=== PATIENT | female | born 1955 | race Caucasian/White ===

== ENCOUNTER 2019-12-10 07:21 | Outpatient (CLI) | payer BC, SELFPAY ==
[2019-12-10 08:03] LABS: Creatinine Urine 106.34 mg/dL (40-278)
[2019-12-10 08:06] LABS: MALB Creatinine Ratio 21.6 mg/g (0-30)
[2019-12-10 09:44] LABS: Alanine Aminotransferase 100 U/L (14-59); Albumin Level 3.8 g/dL (3.4-5.0); Alkaline Phosphatase 87 U/L (46-116); Anion Gap 13.5 mmol/L (7-16); Aspartate Amino Transferase 73 U/L (15-37); Bilirubin,Total 0.6 mg/dL (0.00-1.00); Blood Urea Nitrogen 20 mg/dL (7-18); Calcium 9.2 mg/dL (8.5-10.1); Carbon Dioxide 30 mmol/L (21-32); Chloride 101 mmol/L (98-108); Cholesterol 179 mg/dL (0-200); Estimated Glomerular Filt Rate 60; Glucose 161 mg/dL (70-99); HDL Direct 36 mg/dL (40-60); LDL Cholesterol Calculated 116 mg/dL (<130); Osmolality Calculated 297 mOsm/kg (285-295); Potassium 3.5 mmol/L (3.5-5.1); Sodium 141 mmol/L (136-145); Total Protein 7.3 g/dL (6.4-8.2); Triglycerides 137 mg/dL (0-150)
== END 2019-12-10 07:22 | disposition home or self-care (01) ==
DX: E11.65 Type 2 diabetes mellitus with hyperglycemia (principal)
CPT/HCPCS: 36415; 80053; 80061; 82043

== ENCOUNTER 2020-11-22 09:02 | Outpatient (CLI) | payer OTHER, SELFPAY ==
[2020-11-22 09:22] LABS: Basophils Absolute Auto 0.02 K/mm3 (0.00-0.10); Basophils Percent Auto 0.3 % (0.0-1.0); Eosinophils Absolute Auto 0.06 K/mm3 (0.02-0.50); Hematocrit 40.5 % (35.0-49.0); Hemoglobin 12.6 g/dL (12.0-15.0); Immature Granulocyte Absolute 0.01 K/mm3 (0.00-0.00); Immature Granulocyte Percent A 0.2 % (0.0-0.0); Lymphocytes Percent Auto 19.7 % (18.0-42.0); Mean Corpuscular HGB Conc 31.1 g/dL (32.0-36.0); Mean Corpuscular Hemoglobin 24.6 pg (27.0-31.0); Mean Corpuscular Volume 78.9 fL (78.0-102.0); Mean Platelet Volume 11.7 fl (9.2-11.8); Monocytes Absolute Auto 0.33 K/mm3 (0.10-0.90); Monocytes Percent Auto 5.4 % (2.0-11.0); Neutrophils Absolute Auto 4.5 K/mm3 (1.7-7.2); Neutrophils Percent Auto 73.4 % (50.0-70.0); Platelet Count Result 237 K/mm3 (150-420); Red Blood Count 5.13 M/mm3 (4.20-5.40); Red Cell Distribution Width 15.6 % (11.6-14.4); White Blood Count 6.1 K/mm3 (4.8-10.8)
[2020-11-22 09:59] LABS: Hemoglobin A1C 7.7 % (<5.7)
[2020-11-22 10:34] LABS: Erythrocyte Sedimentation Rate 13 mm/hr (0-20)
[2020-11-22 11:12] LABS: Alanine Aminotransferase 82 U/L (14-59); Albumin Level 3.6 g/dL (3.4-5.0); Alkaline Phosphatase 107 U/L (46-116); Anion Gap 8 mmol/L (8-16); Aspartate Amino Transferase 77 U/L (15-37); Bilirubin,Total 0.5 mg/dL (0.00-1.00); Blood Urea Nitrogen 10 mg/dL (7-18); Calcium 9.1 mg/dL (8.5-10.1); Carbon Dioxide 29 mmol/L (21-32); Chloride 101 mmol/L (98-108); Cholesterol 168 mg/dL (0-200); Estimated Glomerular Filt Rate 57; Folic Acid 15.1 ng/mL (8.6->20); Glucose 151 mg/dL (70-99); HDL Direct 31 mg/dL (40-60); LDL Cholesterol Calculated 93 mg/dL (<130); LDL Cholesterol Direct 105 mg/dL (0-130); Osmolality Calculated 288 mOsm/kg (285-295); Potassium 3.1 mmol/L (3.5-5.1); Sodium 138 mmol/L (136-145); Thyroid Stimulating Hormone 1.25 uIU/mL (0.36-3.74); Total Protein 7.1 g/dL (6.4-8.2); Triglycerides 220 mg/dL (0-150); Vitamin B12 485 pg/mL (193-986)
[2020-11-23 23:28] LABS: Zinc 74 mcg/dL (60-130)
[2020-11-24 22:53] LABS: Albumin 3.7 g/dL (3.8-4.8); Alpha 1 Globulin 0.3 g/dL (0.2-0.3); Alpha 2 Globulin 0.8 g/dL (0.5-0.9); Beta 1 Globulin 0.6 g/dL (0.4-0.6); Gamma Globulin 0.8 g/dL (0.8-1.7); Protein, Total 6.6 g/dL (6.1-8.1)
[2020-11-26 16:31] LABS: Alpha-Tocopherol 13.9 mg/L (5.7-19.9); Beta-Gamma Tocopherol 2.5 mg/L (<=4.3)
== END 2020-11-22 09:03 | disposition home or self-care (01) ==
LOC: CHSLAB 09:07
PROVIDERS: PCP Internal Medicine
DX: Z00.01 Encounter for general adult medical examination with abnormal findings (principal); E11.40 Type 2 diabetes mellitus with diabetic neuropathy, unspecified; E04.2 Nontoxic multinodular goiter; E78.5 Hyperlipidemia, unspecified; K21.9 Gastro-esophageal reflux disease without esophagitis; Z79.4 Long term (current) use of insulin
CPT/HCPCS: 36415; 80053; 80061; 82607; 82746; 83036; 83721; 84155; 84165; 84443; 84446; 84630; 85025; 85652; 86038; 86225

== ENCOUNTER 2022-12-13 09:21 | Outpatient (CLI) | payer MEDICARE, SELFPAY ==
--- NOTE | ~2022-12-13 | DEXA_ITS ---
Bone Density Report Name: YOLY RIDLEY Age: 67 Sex: Female Ethnicity: White Date of : 1955 Indication: postmenopausal; screening for osteoporosis; height loss; hysterectomy; Referring Provider: KIKE STEWART Study: Bone densitometry was performed. Exam Date: December 13, 2022 Accession number: [id number] Bone Density: Region BMD T-score Z-score Classification AP Spine(L1, L2, L3) 1.243 2.0 3.8 Normal Femoral Neck (Left) 0.782 -0.6 0.9 Normal Total Hip (Left) 0.977 0.3 1.5 Normal Femoral Neck (Right) 0.763 -0.8 0.7 Normal Total Hip (Right) 0.897 -0.4 0.9 Normal Femoral Neck Mean 0.773 -0.7 0.8 Normal Total Hip Mean 0.937 0.0 1.2 Normal World Health Organization criteria for BMD impression classify patients as: Normal (T-score at or above -1.0), Osteopenia (T-score between -1.0 and -2.5), or Osteoporosis (T-score at or below -2.5). 10-year Fracture Risk: FRAX not reported because: All T-scores for Spine Total, Hip Total, Femoral Neck at or above -1.0 Clinical Information Provided by Patient: Has the following medical conditions: Hysterectomy Patient maximum height was 63 Menopause Age: 57 No regular weight bearing exercise Does not regularly consume dairy products Drinks caffeinated beverages Onset of menses at age 16 Number of children 3 Impression: The patient has normal bone mass. Discussion: BONE DENSITY IS ABOVE THE MINIMUM DESIRABLE LEVEL AT ALL SKELETAL SITES TESTED. This patient?s bone mineral density is above the minimum desirable level (T-score -1.0 or better) at all sites measured. The patient should follow a healthful lifestyle (good nutrition with adequate calcium and vitamin D, and appropriate weight-bearing exercise). Follow-Up: Consider repeating this study in 5 years or sooner if there is some new clinical indication. Reported by: Dr. Jeremías Harris on 12/13/2022 10:06:00 AM. Reviewed, dictated and finalized at location [id number]
--- NOTE | ~2022-12-13 | MM_ITS ---
EXAMINATION: MM screening ofe BI w fred HISTORY: Screening mammogram TECHNIQUE: Craniocaudal and mediolateral oblique 3-D tomosynthesis images were obtained and synthetic 2-D images were generated. CAD analysis was submitted and interpreted. COMPARISON: 03/14/2018 bilateral screening mammogram BREAST PARENCHYMAL COMPOSITION: There are scattered areas of fibroglandular density. FINDINGS: There is no evidence of suspicious mass, calcification, or architectural distortion to sugg est malignancy in either breast. There has been no suspicious interval change. IMPRESSION: 1. No mammographic evidence of malignancy. 2. Recommend routine screening mammography in one year. BI-RADS Category 1: Negative Reviewed, dictated and finalized at location [facility]
== END 2022-12-13 09:22 | disposition home or self-care (01) ==
LOC: CHSIMG 09:23
PROVIDERS: PCP Physician Assistant Medical; Visit Provider Physician Assistant Medical
DX: Z12.31 Encounter for screening mammogram for malignant neoplasm of breast (principal); Z78.0 Asymptomatic menopausal state
CPT/HCPCS: 77063; 77067; 77080

== ENCOUNTER 2022-12-18 10:22 | Outpatient (CLI) | payer MEDICARE, SELFPAY ==
[2022-12-18 10:46] LABS: Creatinine Urine 105.42 mg/dL (40-278); MALB Creatinine Ratio 12.3 mg/g (0-30); Microalbumin Urine Random < 13.0 mg/L
[2022-12-18 11:02] LABS: Alanine Aminotransferase 67 U/L (14-59); Albumin Level 3.5 g/dL (3.4-5.0); Alkaline Phosphatase 100 U/L (46-116); Anion Gap 6 mmol/L (8-16); Aspartate Amino Transferase 58 U/L (15-37); Bilirubin,Total 0.7 mg/dL (0.00-1.00); Blood Urea Nitrogen 17 mg/dL (7-18); Calcium 8.7 mg/dL (8.5-10.1); Carbon Dioxide 34 mmol/L (21-32); Chloride 98 mmol/L (98-108); Cholesterol 178 mg/dL (0-200); Estimated Glomerular Filt Rate 60; Glucose 164 mg/dL (70-99); HDL Direct 32 mg/dL (40-60); LDL Cholesterol Calculated 114 mg/dL (<130); Osmolality Calculated 291 mOsm/kg (285-295); Potassium 3.5 mmol/L (3.5-5.1); Sodium 138 mmol/L (136-145); Total Protein 6.7 g/dL (6.4-8.2); Triglycerides 162 mg/dL (0-150)
== END 2022-12-18 10:23 | disposition home or self-care (01) ==
LOC: CHSLAB 10:25
PROVIDERS: PCP Physician Assistant Medical; Visit Provider Internal Medicine Endocrinology, Diabetes & Metabolism
DX: E11.65 Type 2 diabetes mellitus with hyperglycemia (principal); E78.5 Hyperlipidemia, unspecified; E11.59 Type 2 diabetes mellitus with other circulatory complications; E11.69 Type 2 diabetes mellitus with other specified complication
CPT/HCPCS: 36415; 80053; 80061; 82043

== ENCOUNTER 2022-12-27 01:40 | Day surgery (SDC) | payer MEDICARE, SELFPAY ==
[2022-12-12 12:26] VITALS: BMI 37.0
[2022-12-27 06:23] VITALS: BP 161/71; PULSE 66; RESP 16; TEMP 36.1; O2SAT 99
[2022-12-27] MEDS: LACTATED RINGERS 1,000 ML 150 ML IV CONT (06:31)
[2022-12-27 06:36] LABS: Glucose Point of Care 152 mg/dl (65-105)
--- NOTE | 2022-12-27 07:26 | WPDANESEPPF ---
Anes - Initial Pre Proc Eval Procedure: Operation Date: 12/27/22 07:30 Proposed Procedures p Esophagogastroduodenoscopy & Screening Colonoscopy - Xu Nguyen MD Date/Time: 12/27/22 07:26 Surgeon: Xu Nguyen MD Pre Op Diagnosis: neoplasm screening, GERD, gastric polyps Patient Data Age: 67 Gender: F Height: 1.6 m Weight: 95.5 kg Last Vital Signs Temp 97 F L 12/27/22 06:23 Pulse 66 12/27/22 06:23 Resp 16 12/27/22 06:23 BP 161/71 H 12/27/22 06:23 Pulse Ox 99 12/27/22 06:23 O2 Del Method Room Air 12/27/22 06:23 Allergies Allergy/AdvReac Type Severity Reaction Status Date / Time Penicillins Allergy Unknown Rash Verified 12/27/22 06:21 Home Medications Medication Instructions Recorded Confirmed Type atorvastatin 40 mg tablet 40 mg PO DAILY 11/20/22 12/12/22 History empagliflozin 10 mg tablet 10 mg PO DAILY 11/20/22 12/12/22 History (Jardiance) escitalopram oxalate 10 mg tablet 10 mg PO DAILY #90 tabs 11/20/22 12/12/22 Rx (Lexapro) esomeprazole magnesium 40 mg 40 mg PO DAILY #90 caps 11/20/22 12/12/22 Rx capsule,delayed release fenofibrate nanocrystallized 145 145 mg PO DAILY 11/20/22 12/12/22 History mg tablet gabapentin 300 mg capsule 300 mg PO TID 11/20/22 12/12/22 History glimepiride 2 mg tablet 2 mg PO QAM 11/20/22 12/12/22 History hydrochlorothiazide 25 mg tablet 25 mg PO DAILY #90 tabs 11/20/22 12/12/22 Rx metformin 500 mg tablet 1,000 mg PO DAILY 11/20/22 12/12/22 History metoprolol succinate 25 mg 25 mg PO .COMPLEX #270 tabs 11/20/22 12/27/22 Rx tablet,extended release 24 hr montelukast 10 mg tablet 10 mg PO DAILY #90 tabs 11/20/22 12/12/22 Rx (Singulair) temazepam 30 mg capsule 30 mg PO QHS PRN sleep #30 caps 11/20/22 12/12/22 Rx Laboratory Tests 12/27/22 06:33 POC Capillary Glucose 152 mg/dl H mg/dl (65-105) Patient hx anesthesia problems: none Family hx anesthesia problems: none Results Review: All pre-operative results and documents have been reviewed as part of the pre-operative evaluation. [facility] Past Medical History Medical History (Updated 11/21/22 @ 22:24 by Melissa Qureshi PA-C) Depression Diabetes type 2, controlled GERD (gastroesophageal reflux disease) HTN (hypertension) Insomnia Surgical History Surgical History H/O breast surgery History of bladder surgery History of cholecystectomy History of knee replacement History of knee surgery S/P complete hysterectomy Family History Family History Other Cerebrovascular accident Diabetes mellitus Family history of cardiovascular disease Social History Social History Smoking status: Never smoker Alcohol intake: never Substance use: never Substance use type: does not use Lack of Transportation: No Lack of Food: Never True Current Housing: I Have Housing Concerned About Future Housing: No Difficulty Paying Gas/Electric Bills: No Difficulty Paying for Meds: No Currently Unemployed: No Education: High School Diploma/GED Difficulty w/ Childcare or Family Care: No Living arrangements: with family Occupation/Education: retired Gender identity (if verbalized by the patient): Female Sexual Orientation (if Verbalized by the Patient): Straight or Heterosexual Spiritual care concerns: No Anes - Eval Final PreProcedure Day of Procedure 12/27/22 07:26 Patient weight: obese Heart: regular rate and rhythm Lungs: clear to auscultation Airway: Mallampati scale class II Neurological: alert and oriented Last oral intake: >/= 8 hours ASA classification: III Emergent: no Anesthetic plan: proceed Anesthesia type and monitoring: general GIVS and standard monitoring Results Review: All pre-operative results and documents have been review
--- NOTE | 2022-12-27 07:28 | PM.HPGS ---
History of Present Illness History of Present Illness Consent: Risks, benefits, and alternatives have been discussed and questions answered. Patient agrees to proceed with procedure. Chief complaint: neoplasm screening, GERD, gastric polyps Narrative: Sharee Hood is a 67 year old female with previous history of gerd on ppi and gastric polyp about 9 years ago, last colonoscopy same time Review of Systems Constitutional: Constitutional: Denies headache(s) and Denies weakness Eyes: Eyes: Denies blurry vision ENT: Reports Normal hearing present, Denies headache(s) and Denies neck pain Cardiovascular: Cardiovascular: Denies chest pain and Denies dyspnea Respiratory: Respiratory: Denies dyspnea Gastrointestinal: Gastrointestinal: Reports no additional gastrointestinal complaints Genitourinary: Genitourinary: Denies dysuria Musculoskeletal: Musculoskeletal: Denies neck pain Integumentary/Breasts: Skin/Breast: Denies dry skin Neurologic: Reports Normal hearing present, Denies headache(s) and Denies weakness Psychiatric: Psychiatric: Denies anxiety Endocrine: Endocrine: Denies change in body appearance Hematologic/Lymphatic: Hematologic/Lymphatic: Denies easy bleeding Allergic/Immunologic: Allergic/Immunologic: Denies urticaria PMFSH Past Medical History Medical History (Updated 12/27/22 @ 07:29 by Xu Nguyen MD) Colon cancer screening Depression Diabetes type 2, controlled Gastric polyp GERD (gastroesophageal reflux disease) HTN (hypertension) Insomnia Surgical History Surgical History H/O breast surgery History of bladder surgery History of cholecystectomy History of knee replacement History of knee surgery S/P complete hysterectomy Family History Family History Other Cerebrovascular accident Diabetes mellitus Family history of cardiovascular disease Social History Social History Smoking status: Never smoker Alcohol intake: never Substance use: never Substance use type: does not use Lack of Transportation: No Lack of Food: Never True Current Housing: I Have Housing Concerned About Future Housing: No Difficulty Paying Gas/Electric Bills: No Difficulty Paying for Meds: No Currently Unemployed: No Education: High School Diploma/GED Difficulty w/ Childcare or Family Care: No Living arrangements: with family Occupation/Education: retired Gender identity (if verbalized by the patient): Female Sexual Orientation (if Verbalized by the Patient): Straight or Heterosexual Spiritual care concerns: No Meds Home Medications and Allergies Home Medications Medication Instructions Recorded Confirmed Type atorvastatin 40 mg tablet 40 mg PO DAILY 11/20/22 12/12/22 History empagliflozin 10 mg tablet 10 mg PO DAILY 11/20/22 12/12/22 History (Jardiance) escitalopram oxalate 10 mg tablet 10 mg PO DAILY #90 tabs 11/20/22 12/12/22 Rx (Lexapro) esomeprazole magnesium 40 mg 40 mg PO DAILY #90 caps 11/20/22 12/12/22 Rx capsule,delayed release fenofibrate nanocrystallized 145 145 mg PO DAILY 11/20/22 12/12/22 History mg tablet gabapentin 300 mg capsule 300 mg PO TID 11/20/22 12/12/22 History glimepiride 2 mg tablet 2 mg PO QAM 11/20/22 12/12/22 History hydrochlorothiazide 25 mg tablet 25 mg PO DAILY #90 tabs 11/20/22 12/12/22 Rx metformin 500 mg tablet 1,000 mg PO DAILY 11/20/22 12/12/22 History metoprolol succinate 25 mg 25 mg PO .COMPLEX #270 tabs 11/20/22 12/27/22 Rx tablet,extended release 24 hr montelukast 10 mg tablet 10 mg PO DAILY #90 tabs 11/20/22 12/12/22 Rx (Singulair) temazepam 30 mg capsule 30 mg PO QHS PRN sleep #30 caps 11/20/22 12/12/22 Rx Allergies Allergy/AdvReac Type Severity Reaction Status Date / Time Penicillins Allergy Unknown Rash Verified 12/27
[2022-12-27] MEDS: BENZOCAINE (*SP) 60 ML SPRAY CAN (HURRICAINE) 1 SPRAY MUCOUS MEM (07:45)
--- NOTE | 2022-12-27 07:49 | SUR.OPER ---
EGD: started at [id number] Colon: began at 741
[2022-12-27 07:57] VITALS: BP 105/61; PULSE 75; RESP 21; O2SAT 97
[2022-12-27 08:07] VITALS: BP 127/73; PULSE 68; RESP 16; O2SAT 97
[2022-12-27 08:17] VITALS: BP 130/72; PULSE 72; RESP 16; O2SAT 98
== END 2022-12-27 08:23 | disposition home or self-care (01) ==
PROVIDERS: PCP Physician Assistant Medical; Visit Provider Internal Medicine Gastroenterology
PROC: 0DJ08ZZ Inspection of Upper Intestinal Tract, Via Natural or Artificial Opening Endoscopic (ICD-10-PCS; CPT 43235; principal; 2022-12-27 07:30)
DX: Z12.11 Encounter for screening for malignant neoplasm of colon (principal); D12.2 Benign neoplasm of ascending colon; D12.5 Benign neoplasm of sigmoid colon; K62.1 Rectal polyp; K57.30 Diverticulosis of large intestine without perforation or abscess without bleeding; K64.8 Other hemorrhoids; K21.9 Gastro-esophageal reflux disease without esophagitis; K31.7 Polyp of stomach and duodenum; E11.9 Type 2 diabetes mellitus without complications; I10 Essential (primary) hypertension; F32.A Depression, unspecified; Z79.84 Long term (current) use of oral hypoglycemic drugs; E66.9 Obesity, unspecified; Z68.37 Body mass index [BMI] 37.0-37.9, adult
CPT/HCPCS: 45380; 45385; 43239; 82948; 88305; J2704; J7120

== ENCOUNTER 2023-07-13 09:00 | Outpatient (CLI) | payer MEDICARE, SELFPAY ==
[2023-07-13 09:13] LABS: Appearance Urine Clear (Clear); Bilirubin Urine Negative (Negative); Blood Urine Negative (Negative); Color Urine Light Yellow (Yellow); Glucose Urine UA 3+ (Negative); Ketones Urine Negative (Negative); Leukocyte Esterase Ur Negative LEU/UL (Negative); Nitrate Urine Negative (Negative); Protein Urine Negative (Negative); Specific Grav Ur 1.015 (1.010-1.020); pH Urine 6.5 (5.0-8.0)
[2023-07-13 09:33] LABS: Add Urine Microscopic? YES; Bacteria Urine Rare /hpf; RBC Urine None seen /hpf (0-2); Squamous Epithelial Cell Urine Rare /hpf (Few)
== END 2023-07-13 09:01 | disposition home or self-care (01) ==
LOC: CHSLAB 09:02
PROVIDERS: PCP Family Medicine; Visit Provider Physician Assistant Medical
DX: N39.0 Urinary tract infection, site not specified (principal)
CPT/HCPCS: 81001; 87077; 87086; 87088; 87186

== ENCOUNTER 2023-09-05 13:16 | Outpatient (CLI) | payer MEDICARE, SELFPAY ==
--- NOTE | 2023-09-05 14:30 | NEURO_ITS ---
Impression: # Diabetic complains of numbness of right hand with nocturnal paresthesia. # Moderate right Carpal Tunnel Syndrome. # Right mild ulnar neuropathy,across the elbow.. # Needle/EMG exam mildly neurogenic in right abductor pollicis brevis muscle. Nerve Conduction Studies Anti Sensory Summary Table Stim Site NR Peak (ms) P-T Amp (?V) Site1 Site2 Delta-P (ms) Dist (cm) Santos (m/s) Right Median Anti Sensory (2-3nd Digit) Wrist 6.8 19.3 Wrist 2-3nd Digit 6.8 14.0 21 Wrist 6.6 12.7 Wrist 2-3nd Digit 6.8 14.0 21 Right Radial Anti Sensory (Base 1st Digit) Wrist 2.1 14.3 Wrist Base 1st Digit 2.1 0.0 Right Ulnar Anti Sensory (5th Digit) Wrist 2.6 31.7 Wrist 5th Digit 2.6 14.0 54 Motor Summary Table Stim Site NR Onset (ms) O-P Amp (mV) Site1 Site2 Delta-0 (ms) Dist (cm) Santos (m/s) Right Median Motor (Abd Poll Brev) Wrist 5.4 2.2 Elbow Wrist 5.0 26.0 52 Elbow 10.4 2.3 Right Ulnar Motor (Abd Dig Minimi) Wrist 2.3 8.5 A Elbow Wrist 5.8 28.0 48 A Elbow 8.1 7.0 B Elbow Wrist 3.5 18.0 51 B Elbow 5.8 4.5 F Wave Studies NR F-Lat (ms) L-R F-Lat (ms) Right Median (Mrkrs) (Abd Poll Brev) 29.87 Right Ulnar (Mrkrs) (Abd Dig Min) 28.15 EMG Side Muscle Nerve Root Ins Act Fibs Amp Dur Recrt Comment Right 1stDorInt Ulnar C8-T1 Nml Nml Nml Nml Nml Right Ext Indicis Radial (Post Int) C7-8 Nml Nml Nml Nml Nml Right Ext Digitorum Radial (Post Int) C7-8 Nml Nml Nml Nml Nml Right BrachioRad Radial C5-6 Nml Nml Nml Nml Nml Right PronatorTeres Median C6-7 Nml Nml Nml Nml Nml Right Abd Poll Brev Median C8-T1 Nml Nml Nml >12ms Reduced Right ABD Dig Min Ulnar C8-T1 Nml Nml Nml Nml Nml MTDD
== END 2023-09-05 13:17 | disposition home or self-care (01) ==
PROVIDERS: PCP Family Medicine; Visit Provider Physician Assistant Medical
DX: R20.2 Paresthesia of skin (principal); G56.01 Carpal tunnel syndrome, right upper limb; G56.21 Lesion of ulnar nerve, right upper limb
CPT/HCPCS: 95886; 95909

== ENCOUNTER 2024-03-12 09:04 | Outpatient (CLI) | payer MEDICARE, SELFPAY ==
[2024-03-12 09:24] LABS: Basophils Absolute Auto 0.02 K/mm3 (0.00-0.10); Basophils Percent Auto 0.3 % (0.0-1.0); Eosinophils Absolute Auto 0.07 K/mm3 (0.02-0.50); Eosinophils Percent Auto 1.1 % (1.0-6.0); Hematocrit 40.8 % (35.0-42.0); Hemoglobin 12.7 g/dL (11.7-13.8); Immature Granulocyte Absolute 0.02 K/mm3 (0.00-0.00); Immature Granulocyte Percent A 0.3 % (0.0-0.0); Lymphocytes Absolute Auto 1.43 K/mm3 (1.10-4.50); Lymphocytes Percent Auto 22.5 % (18.0-42.0); Mean Corpuscular HGB Conc 31.1 g/dL (32-36); Mean Corpuscular Hemoglobin 24.1 pg (27.0-31.0); Mean Corpuscular Volume 77.3 fL (78.0-102.0); Mean Platelet Volume 10.7 fl (9.2-11.8); Monocytes Absolute Auto 0.39 K/mm3 (0.10-0.90); Monocytes Percent Auto 6.1 % (2.0-11.0); Neutrophils Absolute Auto 4.42 K/mm3 (1.70-7.20); Neutrophils Percent Auto 69.7 % (50.0-70.0); Platelet Count Result 216 K/mm3 (150-420); Red Blood Count 5.28 M/mm3 (4.20-5.40); Red Cell Distribution Width 15.9 % (11.6-14.4); White Blood Count 6.4 K/mm3 (4.8-10.8)
[2024-03-12 09:36] LABS: Creatinine Urine 103.49 mg/dL (40-278); MALB Creatinine Ratio 20.8 mg/g (0-30); Microalbumin Urine Random 21.6 mg/L
[2024-03-12 10:40] LABS: Alanine Aminotransferase 53 U/L (14-59); Albumin Level 3.4 g/dL (3.4-5.0); Alkaline Phosphatase 99 U/L (46-116); Anion Gap 7 mmol/L (4-12); Aspartate Amino Transferase 57 U/L (15-37); Bilirubin,Total 0.6 mg/dL (0.00-1.00); Blood Urea Nitrogen 13 mg/dL (7-18); Calcium 8.9 mg/dL (8.5-10.1); Carbon Dioxide 35 mmol/L (21-32); Chloride 98 mmol/L (98-108); Cholesterol 155 mg/dL (0-200); Estimated Glomerular Filt Rate > 60; Glucose 165 mg/dL (70-99); HDL Direct 30 mg/dL (40-60); LDL Cholesterol Calculated 83 mg/dL (<130); Osmolality Calculated 294 mOsm/kg (285-295); Potassium 3.3 mmol/L (3.5-5.1); Sodium 140 mmol/L (136-145); Thyroid Stimulating Hormone 1.75 uIU/mL (0.36-3.74); Total Protein 6.8 g/dL (6.4-8.2); Triglycerides 211 mg/dL (0-150); Vitamin B12 472 pg/mL (193-986)
== END 2024-03-12 09:05 | disposition home or self-care (01) ==
LOC: CHSLAB 09:07
PROVIDERS: PCP Family Medicine; Visit Provider Physician Assistant Medical
DX: E11.9 Type 2 diabetes mellitus without complications (principal); E53.8 Deficiency of other specified B group vitamins; F32.A Depression, unspecified; I10 Essential (primary) hypertension; K21.9 Gastro-esophageal reflux disease without esophagitis; G47.00 Insomnia, unspecified
CPT/HCPCS: 36415; 80053; 80061; 82043; 82607; 84443; 85025

== ENCOUNTER 2025-01-02 13:20 | Outpatient (CLI) | payer MEDICARE, SELFPAY | END 2025-01-02 13:21 | disposition home or self-care (01) | LOC: CHSIMG 13:21 | PROVIDERS: PCP Physician Assistant Medical; Visit Provider Physician Assistant Medical | DX: Z12.31 Encounter for screening mammogram for malignant neoplasm of breast (principal) | CPT/HCPCS: 77063; 77067 ==